=== PATIENT | female | born 1950 | race Caucasian/White ===

== ENCOUNTER 2016-07-15 08:44 | Outpatient (CLI) | payer MEDICARE ==
[~2016-07-15] VITALS: Ht 177.8 cm; Wt 86.2 kg
[~2016-07-15 08:44] MED LIST: /ACETCOD2T PO; ALEN70SO PO; ALENDRONATE OR; ASPI81TA83 OR; ASPI81TA85 PO; ATEN50TA2 OR; ATEN50TA2 PO; CALC600T7 PO; CIPR500T19 OR; CRES20TA PO; FLAG500T OR; IMMUN40IV IV; LEVO100T OR; LISI10TA4 OR; LISI5TAB PO; NEUR100C OR; OCTIVITE PO; OMEP20TA7 OR; OMEP40CA2 PO; PRAV20TA2 OR; PRED10TA2 OR; PRED5SOL2 PO; PRIM25TA PO; PRIM50TA4 OR; SERT25TA85 PO; SYMB80INH INH; SYNT150T PO; VITA200019 PO; ZOLO50TA OR
[2016-07-15] MEDS ORDERED: IMMUNE GLOBULIN 10% 20 GM in APPROPRIATE DILUENT 1 EA IV ONE ×4 (09:00)
[2016-07-15] MEDS ORDERED: IMMUNE GLOBULIN 10% 10 GM in APPROPRIATE DILUENT 1 EA IV ONE (09:00)
== END 2016-07-15 12:15 | disposition home or self-care (01) ==
LOC: M INFU 08:44
PROVIDERS: ATTEND Psychiatry & Neurology Neurology
DX: G61.81 Chronic inflammatory demyelinating polyneuritis (principal); Z79.52 Long term (current) use of systemic steroids; Z79.899 Other long term (current) drug therapy; Z79.82 Long term (current) use of aspirin
CPT/HCPCS: 96365; 96366; J1568

== ENCOUNTER 2016-11-11 08:44 | Outpatient (CLI) | payer MEDICARE ==
[~2016-11-11] VITALS: Ht 177.8 cm; Wt 88.2 kg
[2016-11-11] MEDS ORDERED: IMMUNE GLOBULIN 10% 10GM 100ML 10 GM in APPROPRIATE DILUENT 1 EA IV ONE (09:00)
[2016-11-11] MEDS ORDERED: IMMUNE GLOBULIN IV ONE (09:00)
[2016-11-11] MEDS ORDERED: DILUENT IV ONE (09:00)
== END 2016-11-11 13:00 | disposition home or self-care (01) ==
LOC: M INFU 08:44
PROVIDERS: ATTEND Psychiatry & Neurology Neurology
DX: G61.81 Chronic inflammatory demyelinating polyneuritis (principal); Z79.82 Long term (current) use of aspirin; Z79.899 Other long term (current) drug therapy
CPT/HCPCS: 96365; 96366; J1569

== ENCOUNTER 2017-01-13 08:42 | Outpatient (CLI) | payer MEDICARE ==
[~2017-01-13] VITALS: Ht 177.8 cm; Wt 86.2 kg
[2017-01-13] MEDS ORDERED: IMMUNE GLOBULIN 10% 10GM 100ML 10 GM in APPROPRIATE DILUENT 1 EA IV ONE (09:30)
[2017-01-13] MEDS ORDERED: IMMUNE GLOBULIN 10% 20GM 200ML 40 GM in APPROPRIATE DILUENT 1 EA IV ONE (09:30)
== END 2017-01-13 13:15 | disposition home or self-care (01) ==
LOC: M INFU 08:42
PROVIDERS: ATTEND Psychiatry & Neurology Neurology
DX: G61.81 Chronic inflammatory demyelinating polyneuritis (principal); Z79.82 Long term (current) use of aspirin; Z79.899 Other long term (current) drug therapy
CPT/HCPCS: 96365; 96366; J1569

== ENCOUNTER 2017-03-10 08:34 | Outpatient (CLI) | payer MEDICARE ==
[~2017-03-10] VITALS: Ht 177.8 cm; Wt 86.2 kg
[2017-03-10] MEDS: IMMUNE GLOBULIN 10% 20GM 200ML 40 GM in APPROPRIATE DILUENT 1 EA IV ONE (09:14)
[2017-03-10] MEDS: IMMUNE GLOBULIN 10% 10GM 100ML 10 GM in APPROPRIATE DILUENT 1 EA IV ONE (09:15)
== END 2017-03-10 12:55 | disposition home or self-care (01) ==
LOC: M INFU 08:34
PROVIDERS: ATTEND Psychiatry & Neurology Neurology
DX: G61.81 Chronic inflammatory demyelinating polyneuritis (principal); Z79.52 Long term (current) use of systemic steroids; Z79.82 Long term (current) use of aspirin; Z79.899 Other long term (current) drug therapy
CPT/HCPCS: 96365; 96366; J1569

== ENCOUNTER 2017-05-05 07:34 | Outpatient (CLI) | payer MEDICARE ==
[~2017-05-05] VITALS: Ht 177.8 cm; Wt 86.2 kg
[2017-05-05] MEDS ORDERED: IMMUNE GLOBULIN 10% 20GM 200ML 40 GM in APPROPRIATE DILUENT 1 EA IV ONE (08:00)
[2017-05-05] MEDS ORDERED: IMMUNE GLOBULIN 10% 10GM 100ML 10 GM in APPROPRIATE DILUENT 1 EA IV ONE (08:00)
== END 2017-05-05 11:30 | disposition home or self-care (01) ==
LOC: M INFU 07:34
PROVIDERS: ATTEND Psychiatry & Neurology Neurology
DX: G61.81 Chronic inflammatory demyelinating polyneuritis (principal); Z79.82 Long term (current) use of aspirin; Z79.899 Other long term (current) drug therapy
CPT/HCPCS: 96365; 96366; J1569

== ENCOUNTER 2017-07-09 08:44 | Outpatient (CLI) | payer MEDICARE ==
[2017-07-09] MEDS: IMMUNE GLOBULIN 10% 10GM 100ML 10 GM in APPROPRIATE DILUENT 1 EA IV (09:33)
[2017-07-09] MEDS: IMMUNE GLOBULIN 10% 20GM 200ML 40 GM in APPROPRIATE DILUENT 1 EA IV (09:34)
== END 2017-07-09 13:10 | disposition home or self-care (01) ==
LOC: M INFU 08:44
DX: G61.81 Chronic inflammatory demyelinating polyneuritis (principal)
CPT/HCPCS: J1569

== ENCOUNTER → 2017-08-20 | Outpatient (REF) | payer MEDICARE ==
[2017-08-20 17:15] LABS: BASO # 0.1 10^3/uL (0.0-0.2); EOS # 0.2 10^3/uL (0.0-0.50); HEMATOCRIT 40.8 % (36.0-47.0); HEMOGLOBIN 13.3 g/dl (12.0-16.0); IMMATURE GRANULOCYTE % 0.3 % (0-3.0); LYMPH # 1.5 10^3/uL (1.5-4.5); LYMPH % 25.3 % (24.0-44.0); MEAN CORPUSCULAR HEMOGLOBIN 30.1 pg (27.0-33.0); MEAN CORPUSCULAR HGB CONC 32.6 g/dl (32.0-36.5); MEAN CORPUSCULAR VOLUME 92.3 fl (80.0-96.0); MONO # 0.7 10^3/uL (0.0-0.8); MONO % 11.5 % (0.0-5.0); NEUTROPHILS # 3.4 10^3/uL (1.8-7.7); NEUTROPHILS % 58.9 % (36.0-66.0); PLATELET COUNT, AUTOMATED 310 10^3/uL (150-450); RED BLOOD COUNT 4.42 10^6/uL (4.00-5.40); RED CELL DISTRIBUTION WIDTH 14.8 % (11.5-14.5); WHITE BLOOD COUNT 5.7 10^3/uL (4.0-10.0)
[2017-08-20 19:05] LABS: ALBUMIN 3.7 GM/DL (3.2-5.2); ALBUMIN/GLOBULIN RATIO 1.09 (1.00-1.93); ALKALINE PHOSPHATASE 82 U/L (45-117); ALT/SGPT 33 U/L (12-78); ANION GAP 5 MEQ/L (8-16); AST/SGOT 21 U/L (7-37); BILIRUBIN,TOTAL 0.2 MG/DL (0.2-1.0); BLOOD UREA NITROGEN 19 MG/DL (7-18); CALCIUM LEVEL 8.4 MG/DL (8.8-10.2); CARBON DIOXIDE LEVEL 30 MEQ/L (21-32); CHLORIDE LEVEL 107 MEQ/L (98-107); CREATININE FOR GFR 0.74 MG/DL (0.55-1.30); GLOMERULAR FILTRATION RATE > 60.0 (>45); GLUCOSE, FASTING 91 MG/DL (70-100); POTASSIUM SERUM 4.2 MEQ/L (3.5-5.1); SODIUM LEVEL 142 MEQ/L (136-145); TOTAL PROTEIN 7.1 GM/DL (6.4-8.2)
== END ==
LOC: M LABNEURO 12:09
DX: G25.0 Essential tremor (principal); G61.81 Chronic inflammatory demyelinating polyneuritis
CPT/HCPCS: 80053

== ENCOUNTER 2017-09-03 08:34 | Outpatient (CLI) | payer MEDICARE ==
[2017-09-03] MEDS: IMMUNE GLOBULIN 10% 20GM 200ML 20 GM in APPROPRIATE DILUENT 1 EA IV ×2 (09:37→09:41)
[2017-09-03] MEDS: IMMUNE GLOBULIN 10% 10GM 100ML 10 GM in APPROPRIATE DILUENT 1 EA IV (09:39)
== END 2017-09-03 13:45 | disposition home or self-care (01) ==
LOC: M INFU 08:34
DX: G61.81 Chronic inflammatory demyelinating polyneuritis (principal); Z79.82 Long term (current) use of aspirin; Z79.891 Long term (current) use of opiate analgesic; Z79.899 Other long term (current) drug therapy
CPT/HCPCS: J1569

== ENCOUNTER 2017-11-06 08:45 | Outpatient (CLI) | payer MEDICARE ==
[2017-11-06] MEDS: IMMUNE GLOBULIN 10% 20GM 200ML 40 GM in APPROPRIATE DILUENT 1 EA IV (09:44)
[2017-11-06] MEDS: IMMUNE GLOBULIN 10% 10GM 100ML 10 GM in APPROPRIATE DILUENT 1 EA IV (09:46)
== END 2017-11-06 13:15 | disposition home or self-care (01) ==
LOC: M INFU 08:45
DX: G61.81 Chronic inflammatory demyelinating polyneuritis (principal); M54.2 Cervicalgia; Z79.899 Other long term (current) drug therapy
CPT/HCPCS: J1569

== ENCOUNTER 2018-01-01 07:37 | Outpatient (CLI) | payer MEDICARE ==
[2018-01-01] MEDS: IMMUNE GLOBULIN 10% 10GM 100ML 10 GM in APPROPRIATE DILUENT 1 EA IV (08:13)
[2018-01-01] MEDS: IMMUNE GLOBULIN 10% 20GM 200ML 40 GM in APPROPRIATE DILUENT 1 EA IV (08:14)
== END 2018-01-01 12:05 | disposition home or self-care (01) ==
LOC: M INFU 07:37
DX: G61.81 Chronic inflammatory demyelinating polyneuritis (principal); Z79.899 Other long term (current) drug therapy; Z79.82 Long term (current) use of aspirin
CPT/HCPCS: J1569

== ENCOUNTER → 2018-02-18 | Outpatient (REF) | payer MEDICARE ==
[2018-02-18 13:25] LABS: BASO % 0.7 % (0.0-1.0); EOS # 0.2 10^3/uL (0.0-0.50); EOS % 3.6 % (0.0-3.0); HEMATOCRIT 39.1 % (36.0-47.0); HEMOGLOBIN 12.6 g/dl (12.0-15.5); IMMATURE GRANULOCYTE % 0.8 % (0-3.0); LYMPH # 1.4 10^3/uL (1.5-4.5); LYMPH % 23.9 % (24.0-44.0); MEAN CORPUSCULAR HEMOGLOBIN 30.7 pg (27.0-33.0); MEAN CORPUSCULAR HGB CONC 32.2 g/dl (32.0-36.5); MEAN CORPUSCULAR VOLUME 95.1 fl (80.0-96.0); MONO # 0.5 10^3/uL (0.0-0.8); MONO % 8.8 % (0.0-5.0); NEUTROPHILS # 3.8 10^3/uL (1.8-7.7); NEUTROPHILS % 62.2 % (36.0-66.0); PLATELET COUNT, AUTOMATED 317 10^3/uL (150-450); RED BLOOD COUNT 4.11 10^6/uL (4.00-5.40); RED CELL DISTRIBUTION WIDTH 15.7 % (11.5-14.5)
[2018-02-18 14:34] LABS: ALBUMIN 3.8 GM/DL (3.2-5.2); ALBUMIN/GLOBULIN RATIO 1.41 (1.00-1.93); ALKALINE PHOSPHATASE 87 U/L (45-117); ALT/SGPT 27 U/L (12-78); ANION GAP 9 MEQ/L (8-16); AST/SGOT 17 U/L (7-37); BILIRUBIN,TOTAL 0.3 MG/DL (0.2-1.0); BLOOD UREA NITROGEN 18 MG/DL (7-18); CALCIUM LEVEL 8.2 MG/DL (8.8-10.2); CARBON DIOXIDE LEVEL 26 MEQ/L (21-32); CHLORIDE LEVEL 108 MEQ/L (98-107); CREATININE FOR GFR 0.72 MG/DL (0.55-1.30); GLOMERULAR FILTRATION RATE > 60.0 (>45); GLUCOSE, FASTING 90 MG/DL (70-100); POTASSIUM SERUM 4.2 MEQ/L (3.5-5.1); SODIUM LEVEL 143 MEQ/L (136-145); TOTAL PROTEIN 6.5 GM/DL (6.4-8.2)
== END ==
LOC: M LABNEURO 11:21
DX: G25.0 Essential tremor (principal); G61.81 Chronic inflammatory demyelinating polyneuritis; M43.06 Spondylolysis, lumbar region
CPT/HCPCS: 80053

== ENCOUNTER 2018-03-05 08:39 | Outpatient (CLI) | payer MEDICARE ==
[2018-03-05] MEDS: IMMUNE GLOBULIN 10% 10GM 100ML 10 GM in APPROPRIATE DILUENT 1 EA IV (09:55)
[2018-03-05] MEDS: IMMUNE GLOBULIN 10% 20GM 200ML 40 GM in APPROPRIATE DILUENT 1 EA IV (09:56)
== END 2018-03-05 13:20 | disposition home or self-care (01) ==
LOC: M INFU 08:39
DX: G61.81 Chronic inflammatory demyelinating polyneuritis (principal)
CPT/HCPCS: J1569

== ENCOUNTER 2018-06-01 07:43 | Outpatient (CLI) | payer MEDICARE ==
[~2018-06-01] VITALS: Ht 177.8 cm; Wt 86.2 kg
[2018-06-01] VITALS (7 sets, daily range): BP systolic 130–141; BP diastolic 58–74
[~2018-06-01 07:43] MED LIST changes: +DOXY-350 PO
[2018-06-01] MEDS ORDERED: IMMUNE GLOBULIN 10% 10 GM in APPROPRIATE DILUENT 1 EA IV ONE (08:00)
[2018-06-01] MEDS ORDERED: IMMUNE GLOBULIN 10% 40 GM in APPROPRIATE DILUENT 1 EA IV ONE (08:00)
== END 2018-06-01 12:20 | disposition home or self-care (01) ==
LOC: M INFU 07:43
PROVIDERS: ATTEND Psychiatry & Neurology Neurology
DX: G61.81 Chronic inflammatory demyelinating polyneuritis (principal)
CPT/HCPCS: 96365; 96366; J1459

== ENCOUNTER 2018-07-27 08:46 | Outpatient (CLI) | payer MEDICARE ==
[~2018-07-27] VITALS: Ht 177.8 cm; Wt 86.2 kg
[2018-07-27 08:55] VITALS: BP 140/83
[2018-07-27] MEDS ORDERED: IMMUNE GLOBULIN 10% 40 GM in APPROPRIATE DILUENT 1 EA IV ONE (09:45)
[2018-07-27] MEDS ORDERED: IMMUNE GLOBULIN 10% 10 GM in APPROPRIATE DILUENT 1 EA IV ONE (09:45)
[2018-07-27 10:40] VITALS: BP 126/68
[2018-07-27 11:10] VITALS: BP 138/73
[2018-07-27 11:40] VITALS: BP 127/61
[2018-07-27 12:40] VITALS: BP 132/63
== END 2018-07-27 14:15 | disposition home or self-care (01) ==
LOC: M INFU 08:46
PROVIDERS: ATTEND Psychiatry & Neurology Neurology
DX: G61.81 Chronic inflammatory demyelinating polyneuritis (principal)
CPT/HCPCS: 96365; 96366; J1459

== ENCOUNTER → 2018-08-18 | Outpatient (REF) | payer MEDICARE ==
[2018-08-18 14:11] LABS: BASO # 0.1 10^3/uL (0.0-0.2); BASO % 1.1 % (0.0-1.0); EOS # 0.2 10^3/uL (0.0-0.50); EOS % 2.4 % (0.0-3.0); HEMATOCRIT 42.7 % (36.0-47.0); HEMOGLOBIN 13.7 g/dl (12.0-15.5); LYMPH # 1.6 10^3/uL (1.5-4.5); LYMPH % 25.4 % (24.0-44.0); MEAN CORPUSCULAR HEMOGLOBIN 30.2 pg (27.0-33.0); MEAN CORPUSCULAR HGB CONC 32.1 g/dl (32.0-36.5); MEAN CORPUSCULAR VOLUME 94.1 fl (80.0-96.0); MONO # 0.8 10^3/uL (0.0-0.8); MONO % 12.5 % (0.0-5.0); NEUTROPHILS # 3.6 10^3/uL (1.8-7.7); NEUTROPHILS % 58.3 % (36.0-66.0); PLATELET COUNT, AUTOMATED 329 10^3/uL (150-450); RED BLOOD COUNT 4.54 10^6/uL (4.00-5.40); WHITE BLOOD COUNT 6.2 10^3/uL (4.0-10.0)
[2018-08-18 14:52] LABS: ALBUMIN 3.7 GM/DL (3.2-5.2); ALT/SGPT 29 U/L (12-78); BILIRUBIN,TOTAL 0.2 MG/DL (0.2-1.0); BLOOD UREA NITROGEN 22 MG/DL (7-18); CARBON DIOXIDE LEVEL 28 MEQ/L (21-32); CHLORIDE LEVEL 107 MEQ/L (98-107); CREATININE FOR GFR 0.82 MG/DL (0.55-1.30); GLOMERULAR FILTRATION RATE > 60.0 (>45); GLUCOSE, FASTING 94 MG/DL (70-100); POTASSIUM SERUM 4.6 MEQ/L (3.5-5.1); SODIUM LEVEL 141 MEQ/L (136-145); TOTAL PROTEIN 7.2 GM/DL (6.4-8.2)
[2018-08-18 15:00] LABS: FOLATE > 24.0 NG/ML (>5.4); TOTAL 25(OH) VITAMIN D 30.5 NG/ML (30.0-100.0); VITAMIN B12 LEVEL 325 PG/ML (247-911)
== END ==
LOC: M LABNEURO 11:13
PROVIDERS: ATTEND Psychiatry & Neurology Neurology
DX: G61.81 Chronic inflammatory demyelinating polyneuritis (principal); E53.9 Vitamin B deficiency, unspecified; E55.9 Vitamin D deficiency, unspecified

== ENCOUNTER 2018-09-28 08:38 | Outpatient (CLI) | payer MEDICARE ==
[~2018-09-28] VITALS: Ht 177.8 cm; Wt 87.7 kg
[2018-09-28] VITALS (7 sets, daily range): BP systolic 121–138; BP diastolic 57–68
[~2018-09-28 08:38] MED LIST changes: -/ACETCOD2T PO; +ACET1TAB15 PO
[2018-09-28] MEDS ORDERED: IMMUNE GLOBULIN 10% 10 GM in APPROPRIATE DILUENT 1 EA IV ONE (08:45)
[2018-09-28] MEDS ORDERED: IMMUNE GLOBULIN 10% 40 GM in APPROPRIATE DILUENT 1 EA IV ONE (08:45)
== END 2018-09-28 13:00 | disposition home or self-care (01) ==
LOC: M INFU 08:38
PROVIDERS: ATTEND Psychiatry & Neurology Neurology
DX: G61.81 Chronic inflammatory demyelinating polyneuritis (principal)
CPT/HCPCS: 96365; 96366; J1459

== ENCOUNTER 2018-11-23 08:37 | Outpatient (CLI) | payer MEDICARE ==
[~2018-11-23] VITALS: Ht 177.8 cm; Wt 87.7 kg
[~2018-11-23 08:37] MED LIST changes: +IMMUNE GLOBULIN 10% 10 GM in APPROPRIATE DILUENT 1 EA IV ONE; +IMMUNE GLOBULIN 10% 40 GM in APPROPRIATE DILUENT 1 EA IV ONE
[2018-11-23 08:55] VITALS: BP 134/74
[2018-11-23 09:40] VITALS: BP 123/60
[2018-11-23 10:10] VITALS: BP 127/72
[2018-11-23 11:10] VITALS: BP 134/64
[2018-11-23 12:10] VITALS: BP 133/70
[2018-11-23 12:55] VITALS: BP 137/81
== END 2018-11-23 12:55 | disposition home or self-care (01) ==
LOC: M INFU 08:37
PROVIDERS: ATTEND Psychiatry & Neurology Neurology
DX: G61.81 Chronic inflammatory demyelinating polyneuritis (principal)
CPT/HCPCS: 96365; 96366; J1459

== ENCOUNTER 2019-02-01 09:35 | Outpatient (CLI) | payer MEDICARE ==
[~2019-02-01] VITALS: Ht 180.3 cm; Wt 87.7 kg
[~2019-02-01 09:35] MED LIST changes: -IMMUNE GLOBULIN 10% 10 GM in APPROPRIATE DILUENT 1 EA IV ONE; -IMMUNE GLOBULIN 10% 40 GM in APPROPRIATE DILUENT 1 EA IV ONE
[2019-02-01 09:40] VITALS: BP 154/73
[2019-02-01] MEDS ORDERED: IMMUNE GLOBULIN 10% 10 GM in APPROPRIATE DILUENT 1 EA IV ONE (10:00)
[2019-02-01] MEDS ORDERED: IMMUNE GLOBULIN 10% 40 GM in APPROPRIATE DILUENT 1 EA IV ONE (10:00)
[2019-02-01 10:45] VITALS: BP 131/64
[2019-02-01 11:15] VITALS: BP 122/62
[2019-02-01 11:45] VITALS: BP 136/73
[2019-02-01 12:15] VITALS: BP 149/70
[2019-02-01 13:45] VITALS: BP 135/63
== END 2019-02-01 13:45 | disposition home or self-care (01) ==
LOC: M INFU 09:35
PROVIDERS: ATTEND Psychiatry & Neurology Neurology
DX: G61.81 Chronic inflammatory demyelinating polyneuritis (principal)
CPT/HCPCS: 96365; 96366; J1459

== ENCOUNTER 2019-05-31 09:08 | Outpatient (CLI) | payer MEDICARE ==
[~2019-05-31] VITALS: Ht 177.8 cm; Wt 71.0 kg
[2019-05-31] VITALS (7 sets, daily range): BP systolic 118–154; BP diastolic 60–73
[2019-05-31] MEDS ORDERED: IMMUNE GLOBULIN 10% 40 GM in IV 1 EA IV ONE (10:00)
[2019-05-31] MEDS ORDERED: IMMUNE GLOBULIN 10% 10 GM in IV 1 EA IV ONE (10:00)
== END 2019-05-31 13:45 | disposition home or self-care (01) ==
LOC: M INFU 09:08
PROVIDERS: ATTEND Psychiatry & Neurology Neurology
DX: G61.81 Chronic inflammatory demyelinating polyneuritis (principal)
CPT/HCPCS: 96365; 96366; J1459

== ENCOUNTER 2019-07-26 09:06 | Outpatient (CLI) | payer MEDICARE ==
[2019-07-26] VITALS (7 sets, daily range): BP systolic 125–136; BP diastolic 61–72
[~2019-07-26] VITALS: Ht 177.8 cm; Wt 71.0 kg
[2019-07-26] MEDS ORDERED: IMMUNE GLOBULIN 10% 10 GM in IV 1 EA IV ONE (10:00)
[2019-07-26] MEDS ORDERED: IMMUNE GLOBULIN 10% 40 GM in IV 1 EA IV ONE (10:00)
== END 2019-07-26 13:35 | disposition home or self-care (01) ==
LOC: M INFU 09:06
PROVIDERS: ATTEND Psychiatry & Neurology Neurology
DX: G61.81 Chronic inflammatory demyelinating polyneuritis (principal)
CPT/HCPCS: 96365; 96366; J1459

== ENCOUNTER → 2022-06-10 | Outpatient (REF) | payer MEDICARE, BC ==
[~2022-06-10] MED LIST changes: -DOXY-350 PO; +DOXY-444 PO
[2022-06-10 17:31] LABS: MAGNESIUM LEVEL 1.9 MG/DL (1.8-2.4)
[2022-06-10 17:33] LABS: CPK CREATINE PHOSPHOKINASE 195 U/L (34-145); IRON (FE) 38 UG/DL (50-170); PHOSPHORUS LEVEL 3.6 MG/DL (2.4-5.1)
[2022-06-10 17:36] LABS: TOTAL 25(OH) VITAMIN D 37.1 NG/ML (20.0-100.0)
[2022-06-10 17:37] LABS: VITAMIN B12 LEVEL > 2000 PG/ML (211-911)
== END ==
LOC: M SFHCRHEU 15:39
PROVIDERS: ATTEND Internal Medicine
DX: M79.18 Myalgia, other site (principal); Z79.899 Other long term (current) drug therapy